=== PATIENT | female | born 1965 | race Caucasian/White ===

== ENCOUNTER 2020-03-10 12:18 | Outpatient (CLI) | payer BC, SELFPAY ==
--- NOTE | ~2020-03-10 | MR_ITS ---
EXAMINATION: MR lumbar spine wo/w con DATE: 03/10/2020 13:49 INDICATION: Spondylolisthesis. Low back pain and bilateral leg spasms. TECHNIQUE: Magnetic resonance imaging (MRI) of the lumbar spine was performed without and with 19 mL Multihance intravenous contrast. Sequences included sagittal T2-weighted FSE, sagittal T2-weighted FS FSE, and sagittal and axial T1-weighted FSE. Postcontrast sequences included axial T2-weighted FSE, sagittal T1-weighted FSE, and axial and sagittal T1-weighted FS FSE. COMPARISON: None FINDINGS: 5 mm anterolisthesis L4 on L5. Postoperative changes of prior L4 laminectomy and L4-L5 anterior and p osterior spinal fusions with metallic magnetic field artifact associated with bilateral vertical julio césar and pedicle screws and a pair of likely bone graft cages on the disc space. The artifact obscures and distorts some of the immediately adjacent tissues mildly limiting evaluation in this region. Vertebr al body heights are normal. Fibrovascular degenerative endplate changes at both sides of L4-L5. There are few subtle scattered small T1 hyperintense hemangiomas at L1 and S1. The discs at the unfused di sc spaces demonstrate normal height and signal. The conus medullaris terminates at L2. There is estela l signal in the caudal spinal cord. There is postoperative scarring and a few foci of susceptibility artifact posterior to the lower lumbar spine.. Paravertebral soft tissues are otherwise unremarkable. No abnormally enhancing lesions identified. The following disc levels are specifically discussed: T12-L1: The disc does not extend beyond the endplate margin. There is no facet joint osteoarthritis. There is no neural foraminal stenosis. There is no central canal stenosis. L1-L2: The disc does not extend beyond the endplate margin. There is mild bilateral facet joint osteo arthritis. There is no neural foraminal stenosis. There is no central canal stenosis. L2-L3: The disc does not extend beyond the endplate margin. There is mild left and minimal right face t joint osteoarthritis. There is minimal left neural foraminal stenosis. There is no central canal st enosis. L3-L4: The disc does not extend beyond the endplate margin. There is hypertrophy of the ligamentum fl avum. There is moderate bilateral facet joint osteoarthritis. There is mild bilateral neural foramina l stenosis. There is no central canal stenosis. L4-L5: Disc is bulging posterior to the inferior endplate of L4 but not beyond the more posterior end plate of L5. There is posterior decompression resulting from the L4 laminectomy. Instrumented fusion spanning the bilateral facet joints. There is mild bilateral neural foraminal stenosis. There is no c entral canal stenosis. L5-S1: Disc is minimally bulging. There is also moderate bilateral facet joint osteoarthritis. There is mild bilateral neural foraminal stenosis. There is no central canal stenosis. IMPRESSION: 1. Mild lumbar spondylosis with L4 laminectomy and instrumented anterior and posterior spinal fusion at L4-L5. Reviewed, dictated and finalized at location A. IMPRESSION: 1. Mild lumbar spondylosis with L4 laminectomy and instrumented anterior and po sterior spinal fusion at L4-L5.
[2020-03-10 13:08] LABS: Estimated Glomerular Filt Rate 58
== END 2020-03-10 12:19 | disposition home or self-care (01) ==
LOC: ANHIMG 12:35
PROVIDERS: PCP Family Medicine; Visit Provider Neurological Surgery
DX: M43.16 Spondylolisthesis, lumbar region (principal); M62.838 Other muscle spasm; M47.816 Spondylosis without myelopathy or radiculopathy, lumbar region; Z98.1 Arthrodesis status
CPT/HCPCS: 36415; 72158; A9577

== ENCOUNTER 2020-03-14 13:53 | Outpatient (CLI) | payer BC, SELFPAY ==
[2020-03-14 15:29] LABS: Basophils Absolute Auto 0.1 K/mm3 (0.0-0.1); Basophils Percent Auto 0.6 % (0.2-1.2); Eosinophils Absolute Auto 0.2 K/mm3 (0-0.3); Eosinophils Percent Auto 2.3 % (0-4.4); Hematocrit 41.7 % (37.0-47.0); Hemoglobin 13.6 g/dL (12.0-15.0); Immature Granulocyte Absolute 0.02 K/mm3 (0.00-0.031); Immature Granulocyte Percent A 0.3 % (0-0.5); Lymphocytes Absolute Auto 2.18 K/mm3 (0.9-3.2); Lymphocytes Percent Auto 27.9 % (18.3-44.2); Mean Corpuscular HGB Conc 32.6 g/dl (32-36); Mean Corpuscular Hemoglobin 31.3 pg (26-34); Mean Corpuscular Volume 95.9 fl (80-100); Mean Platelet Volume 9.5 fl (7.4-10.4); Monocytes Absolute Auto 0.4 K/mm3 (0.1-0.6); Monocytes Percent Auto 4.7 % (2.6-8.5); Neutrophils Percent Auto 64.2 % (45.5-73.1); Platelet Count Result 356 k/mm3 (150-375); Red Blood Count 4.35 M/mm3 (4.2-5.4); Red Cell Distribution Width 12.2 % (11.5-14.5); White Blood Count 7.8 K/mm3 (4.5-10.0)
[2020-03-14 15:32] LABS: Anion Gap 7 mmol/L (8-16); Blood Urea Nitrogen 17 mg/dL (7-17); Calcium 9.1 mg/dL (8.4-10.2); Carbon Dioxide 26 mmol/L (22-30); Chloride 103 mmol/L (98-107); Estimated Glomerular Filt Rate 52; Glucose 119 mg/dL (65-105); Potassium 4.1 mmol/L (3.4-5.0); Sodium 136 mmol/L (137-145)
== END 2020-03-14 13:54 | disposition home or self-care (01) ==
PROVIDERS: PCP Family Medicine; Visit Provider Neurological Surgery
DX: Z01.812 Encounter for preprocedural laboratory examination (principal)
CPT/HCPCS: 36415; 80048; 85025